=== PATIENT | male | born 1980 | race Caucasian/White ===

== ENCOUNTER 2018-08-09 18:20 | Emergency (ER) | payer BC, SELFPAY ==
[2018-08-09 18:21] VITALS: BP 136/71; PULSE 116; RESP 20; TEMP 36.3; O2SAT 99; BMI 30.9
[2018-08-09 18:30] VITALS: BP 151/80; PULSE 131; RESP 16; O2SAT 99
--- NOTE | 2018-08-09 18:34 | ED.RN ---
pt reports that pain comes and goes for about a week with no pattern of activity or triggers. sob comes with it at times and sob worse with laying down. pain to upper left chest just under collar bone. left arm pain in biscep down through fingers. 1 episode of diaphoresis with the pain today. does have hx of a-fib recently. ST on monitor rt now.
--- NOTE | 2018-08-09 18:40 | RAD_ITS ---
STUDY: X-RAY CHEST REASON FOR EXAM: Male, 37 years old. PT C/O INTERMITTENT CHEST PAIN THAT RADIATES TO LEFT ARM. TECHNIQUE: Single AP portable view of the chest. COMPARISON: FINDINGS: The lungs are clear and expanded. There is no demonstrated pleural abnormality. There is mild cardiac enlargement. Normal mediastinum and gus. Normal visualized pulmonary arteries. Normal visualized aortic arch and descending thoracic aorta. Normal visualized thoracic spine. Normal visualized ribs, clavicles, and shoulders. There is no demonstrated abnormality of the visualized soft tissue structures of the upper abdomen. RAD/Chest 1 View (Portable) IMPRESSION: Normal x-ray examination of the chest. Electronically Signed: Patric López MD at 19:05 EDT , Service support ,
--- NOTE | 2018-08-09 18:40 | EKG12_ITS ---
Test Reason : CP Blood Pressure : / mmHG Vent. Rate : 114 BPM Atrial Rate : 114 BPM P-R Int : 144 ms QRS Dur : 076 ms QT Int : 320 ms P-R-T Axes : 057 008 010 degrees QTc Int : 441 ms Sinus tachycardia Otherwise normal ECG Confirmed by SARITA QUEZADA, KAMLA ([id number]), newspaper photo editor RONALD GARZON ([id number]) on 08/11/2018 3:24:29 PM Referred By: MONICA/BRENDAN Confirmed By:KAMLA STEIN MD
[2018-08-09 18:45] VITALS: O2SAT 99
[2018-08-09] MEDS: 0.9% Normal Saline 1,000 ML 1000 ML IV (18:48)
[2018-08-09] MEDS: Aspirin 81 MG TAB.CHEW 324 MG PO (18:48)
[2018-08-09 18:49] VITALS: BP 143/94; PULSE 104; RESP 14; O2SAT 98
[2018-08-09 18:54] LABS: Absolute Lymphocyte Count 2.49 X10^3/ul (0.83-4.51); Absolute Neutrophil Count 9.5 X10^3/uL (2.0-7.7); Basophil# 0.04 X10^3/uL; Basophil% 0.3 % (0-1); Eosinophil# 0.08 X10^3/uL; Eosinophils% 0.6 % (0-5); Hematocrit 43.2 % (40-54); Hemoglobin 14.8 g/dl (13.0-16.5); Lymphocyte # 2.49 X10^3/ul (4.0); Lymphocyte % 18.7 % (19-41); Mean Corp Hgb Conc 34.3 g/gl (32-36); Mean Corpuscular Hgb 29.7 pg (27.0-32.0); Mean Corpuscular Volume 86.7 fL (80-94); Mean Platelet Vol. 9.1 fl (6.2-12.0); Monocyte# 1.14 X10^3/uL; Monocyte% 8.6 % (0-10); Neutrophil # 9.52 X10^3/uL (2.7-7.7); Neutrophil % 71.6 % (47-70); POSITIVE COUNT NO; POSITIVE DIFFERENTIAL NO; POSITIVE MORPHOLOGY NO; Platelet Count 380 K/mm3 (150-450); RBC Distribution Width CV 12.9 % (11.6-14.6); RBC Distribution Width SD 41.1 fl (35.1-43.9); Red Blood Count 4.98 M/mm3 (4.6-6.2); White Blood Count 13.3 K/mm3 (4.4-11.0)
[2018-08-09 18:56] LABS: D-Dimer Quantitative (DVT/PE) 0.29 FEU/ug/m (0.27-0.49)
[2018-08-09 19:07] LABS: Anion Gap 6 (5-15); BUN 14 mg/dL (7-18); BUN/Creat Ratio 15.3 RATIO (10-20); Chloride 105 mmol/L (98-107); Creatinine, Serum 0.92 mg/dL (0.70-1.30); EST Glomerular Filtration Rate 99 mL/min (>60); Est Glom Filt Rate - Afr Amer 119 mL/min (>60); Estimated Creatinine Clearance 113.51 ml/min; Glucose 99 mg/dL (74-106); Potassium 3.8 mmol/L (3.5-5.1); Sodium Level 138 mmol/L (136-145); Thyroid Stim Hormone (TSH) 1.24 uIU/mL (0.358-3.74)
[2018-08-09 19:38] VITALS: BP 140/77; PULSE 98; RESP 20; O2SAT 100
--- NOTE | 2018-08-09 20:08 | ED.VISSUMM ---
- ER Visit Summary Date of Service: 08/09/18 Chief Complaint: Chest pain History of Present Illness: The patient is a [address] Milian and Dr. Arora. He reports he has chest pain began approximately 10 days ago. Some intermittent pain that lasts hours at a time. He states that it is 6 out of 10 at worst and is pain-free currently. It is worsened by nothing including exertion, movement, or breathing. Is also relieved by nothing. Does report he has had a episodes of nausea. He has had diaphoresis and shortness of breath as well. He has no personal or family history of DVT. He did go on a cruise 2 weeks ago and this required a drive to [place] which is approximately 8 hours. However, he denies any ankle swelling or calf pain. Physical Examination: Vitals: Stable. Afebrile. General: Well-nourished and well-developed. Head: Normocephalic atraumatic. Neck: Supple, no lymphadenopathy. No JVD. Nontender. Cardiovascular: Regular rate and rhythm. No murmurs. Respiratory: No respiratory distress. Clear to auscultation bilaterally. Abdominal: Soft, nontender, nondistended, normal bowel sounds. No guarding, rebound, or peritoneal signs. Back: Nontender. Extremities: Nontender, no edema. Skin: Normal color, no rash. Neurologic: Alert and oriented ?3. Cranial nerves II through XII are intact. Normal strength and sensation. Psych: Normal affect. Test Results: EKG is sinus tach [address] changes. There is no old EKG for comparison. Troponin is negative. D-dimer is negative. Chem-7 is normal. CBC is more for a white count of 13.3 with 72 segmented neutrophils and 19 lymphs lites. TSH is normal. Chest x-ray is normal. Emergency Department Course and Treatment: Patient is resting comfortably has been pain-free while here. Treatment Plan: Discussed the patient at this time I do not have an explanation for his chest pain. Is not typical of angina. He reports that he had a heart catheterization 10 years ago that was negative. Does have a history of paroxysmal A. fib that he takes flecainide for as needed. He reports that he did have an episode 2 weeks ago, but has not had an episode since then. His heart score is 1. His ROMY score is 0. I feel that he is a suitable candidate for further outpatient evaluation. He will be discharged instructions follow-up Dr. Milian soon as possible. Return to the emergency department for any worsening symptoms. Disposition: To home in improved and stable condition. Impression: 1. Atypical chest pain. 2. ROMY score of 0. This note was generated with [employer] dictation software. It may contain incorrect words, spelling, and punctuation that were not noted in review of the chart prior to signing ED Disposition - Plan for ED Patient: Disposition: Home or Assisted Living Chief Complaint: Chest Pain Instructions: ED Chest Pain Atypical Unkn Cause Referrals: Mauricio Arora MD [Primary Care Provider] - Neil Milian MD [STAFF PHYSICIAN] - As soon as possible
[2018-08-09 20:12] VITALS: BP 151/79; PULSE 95; PULSE 96; RESP 16; RESP 19; O2SAT 96; O2SAT 97
== END 2018-08-09 20:15 | disposition home or self-care (01) ==
LOC: ED 18:55
PROVIDERS: Emergency Provider Emergency Medicine; Family Provider Family Medicine; PCP Family Medicine
DX: R07.89 Other chest pain (principal); I48.0 Paroxysmal atrial fibrillation; I10 Essential (primary) hypertension; R06.02 Shortness of breath; R11.0 Nausea; R06.00 Dyspnea, unspecified; Z79.899 Other long term (current) drug therapy
CPT/HCPCS: 71045; 80048; 84443; 84484; 85025; 85379; 93005; 96360; 99285; J7030; A4216

== ENCOUNTER → 2019-06-04 08:06 | Outpatient (CLI) | payer BC, SELFPAY ==
[2019-05-20 08:37] VITALS: BMI 32.0
--- NOTE | 2019-06-04 08:08 | ECHOD_ITS ---
Reason For Study: AFIB/FLUTTER Procedure This was a 2D Doppler, Color Flow transthoracic echocardiogram. Exam performed in department. Left Ventricle Normal LV size. Left ventricular systolic function is normal. The estimated ejection fraction is 60 %. Normal diastology for age. No regional wall motion abnormalities noted. Right Ventricle Normal RV size. Normal systolic function. Atria Normal left atrium. Normal right atrium. Mitral Valve Normal mitral valve. Tricuspid Valve Normal tricuspid valve. Aortic Valve The aortic valve is not well visualized. Pulmonic Valve The pulmonic valve is not well visualized. Great Vessels Normal aortic root. The pulmonary artery is normal size. Normal inferior vena cava. Pericardium/Pleural No pericardial effusion. MMode/2D Measurements & Calculations LVIDd: 5.1 cm IVSd: 0.94 cm Ao root diam: 2.5 cm LVIDs: 3.5 cm LVPWd: 0.94 cm RVDd: 3.1 cm FS: 31.5 % LAV(MOD-bp): 53.5 ml LA A4 area: 18.3 cm2 LA dimension(2D): 3.6 cm LAV(MOD-bp) Indexed: 24.6 ml/m2 LAV(MOD-sp2): 47.7 ml LAV(MOD-sp4): 48.7 ml RA A4 area: 11.5 cm2 Time Measurements MV dec time: 0.17 sec Doppler Measurements & Calculations MV E max jose juan: 75.6 cm/sec Lat Peak E' Jose Juan: 8.6 cm/sec Med Peak E' Jose Juan: 10.4 cm/sec MV A max jose juan: 53.1 cm/sec E/E' lat: 8.7 E/E' med: 7.3 MV E/A: 1.4 Ao V2 max: 120.6 cm/sec LV V1 max: 105.4 cm/sec PA V2 max: 127.1 cm/sec Ao max P.8 mmHg LV V1 max P.4 mmHg Interpretation Summary Normal LV size. Left ventricular systolic function is normal. The estimated ejection fraction is 60 %. Normal diastology for age. Ordering Physician: Neil Milian Referring Physician: Mauricio Arora Performed By: Apple Carney, ALE, RVT
== END ==
PROVIDERS: Family Provider Family Medicine; PCP Family Medicine; Referring Provider Internal Medicine Cardiovascular Disease; Visit Provider Internal Medicine Cardiovascular Disease
DX: I48.0 Paroxysmal atrial fibrillation (principal); I10 Essential (primary) hypertension
CPT/HCPCS: 93306

== ENCOUNTER → 2020-12-23 08:55 | Outpatient (CLI) | payer BC, SELFPAY ==
[2020-12-16 11:38] VITALS: BMI 31.1
== END ==
PROVIDERS: PCP Family Medicine; Referring Provider Internal Medicine Cardiovascular Disease; Visit Provider Internal Medicine Cardiovascular Disease
DX: I48.0 Paroxysmal atrial fibrillation (principal); I48.92 Unspecified atrial flutter
CPT/HCPCS: 93226

== ENCOUNTER → 2022-08-14 | Outpatient (CLI) | payer BC, SELFPAY ==
[2022-08-14 12:54] LABS: Anion Gap 5 (5-15); BUN 11 mg/dL (7-18); BUN/Creat Ratio 13.4 RATIO (10-20); Calcium,Total 9.5 mg/dL (8.5-10.1); Chloride 106 mmol/L (98-107); Creatinine, Serum 0.82 mg/dL (0.70-1.30); EST Glomerular Filtration Rate 110 mL/min (>60); Est Glom Filt Rate - Afr Amer 133 mL/min (>60); Glucose 90 mg/dL (74-106); Hemoglobin A1c 5.6 % (3.8-5.6); Potassium 4.2 mmol/L (3.5-5.1); Sodium Level 139 mmol/L (136-145); Thyroid Stim Hormone (TSH) 1.64 uIU/mL (0.358-3.74)
== END | disposition home or self-care (01) ==
PROVIDERS: PCP Family Medicine; Referring Provider Internal Medicine Cardiovascular Disease; Visit Provider Internal Medicine Cardiovascular Disease
DX: I48.0 Paroxysmal atrial fibrillation (principal); I10 Essential (primary) hypertension
CPT/HCPCS: 36415; 80048; 83036; 84443

== ENCOUNTER → 2022-11-19 | Outpatient (CLI) | payer BC, SELFPAY ==
[2022-11-19 12:13] LABS: Absolute Lymphocyte Count 1.87 X10^3/uL (0.83-4.51); Absolute Neutrophil Count 3.6 X10^3/uL (2.0-7.7); Basophil# 0.04 X10^3/uL; Basophil% 0.6 % (0-1); Eosinophil# 0.09 X10^3/uL; Eosinophils% 1.4 % (0-5); Hematocrit 44.7 % (40-54); Hemoglobin 15.2 g/dL (13.0-16.5); Lymphocyte # 1.87 X10^3/ul (0.83-4.51); Lymphocyte % 30.1 % (19-41); Mean Corpuscular Hgb 29.9 pg (27.0-32.0); Mean Platelet Vol. 9.7 fl (6.2-12.0); Monocyte# 0.65 X10^3/uL; Monocyte% 10.5 % (0-10); NRBC Flagged by Analyzer 0 % (0-5); Neutrophil # 3.55 X10^3/uL (2.7-7.7); Neutrophil % 57.1 % (47-70); Platelet Count 416 K/mm3 (150-450); RBC Distribution Width CV 13.6 % (11.6-14.6); RBC Distribution Width SD 43.8 fl (35.1-43.9); Red Blood Count 5.08 M/mm3 (4.6-6.2); White Blood Count 6.2 K/mm3 (4.4-11.0)
[2022-11-19 12:20] LABS: Erythrocyte Sedimentation Rate 13 mm/hr (0-20)
[2022-11-19 12:46] LABS: Vitamin B12 259 pg/mL (211-911)
[2022-11-19 12:57] LABS: ALB/GLOB Ratio 1.1 RATIO (0.9-2.4); AST(SGOT) 18 U/L (15-37); Alanine Aminotransfer ALT/SGPT 43 U/L (16-61); Albumin, Serum 3.9 g/dL (3.2-5.0); Alkaline Phosphatase 76 U/L (45-117); Anion Gap 11 (5-15); BUN 15 mg/dL (7-18); BUN/Creat Ratio 16.9 RATIO (10-20); Calcium,Total 9.1 mg/dL (8.5-10.1); Chloride 104 mmol/L (98-107); Creatinine, Serum 0.89 mg/dL (0.70-1.30); EST Glomerular Filtration Rate 100 mL/min (>60); Est Glom Filt Rate - Afr Amer 121 mL/min (>60); Globulin 3.7 g/dL (2.2-4.2); Glucose 94 mg/dL (74-106); Magnesium 2.4 mg/dL (1.6-2.6); Potassium 3.7 mmol/L (3.5-5.1); Protein, Total 7.6 g/dL (6.4-8.2); Sodium Level 139 mmol/L (136-145); Thyroid Stim Hormone (TSH) 1.85 uIU/mL (0.358-3.74)
== END | disposition home or self-care (01) ==
PROVIDERS: PCP Internal Medicine; Referring Provider Physician Assistant; Visit Provider Physician Assistant
DX: I48.0 Paroxysmal atrial fibrillation (principal); I10 Essential (primary) hypertension; R20.2 Paresthesia of skin
CPT/HCPCS: 36415; 80053; 82607; 83735; 84443; 85025; 85652

== ENCOUNTER → 2022-12-31 | Outpatient (CLI) | payer BC, SELFPAY | END | disposition home or self-care (01) | PROVIDERS: PCP Internal Medicine; Visit Provider Internal Medicine | DX: G47.10 Hypersomnia, unspecified (principal) | CPT/HCPCS: 95811 ==

== ENCOUNTER → 2023-01-31 | Outpatient (CLI) | payer BC, SELFPAY ==
[2023-01-31 09:28] LABS: Erythrocyte Sedimentation Rate 3 mm/hr (0-20)
[2023-01-31 09:44] LABS: CRP 3.35 mg/L (0.0-3.0); Rheumatoid Factor < 10.0 IU/mL (<15)
[2023-02-01 12:22] LABS: CCP IgG Antibodies 1 units (0-19)
== END | disposition home or self-care (01) ==
PROVIDERS: PCP Internal Medicine; Referring Provider Internal Medicine; Visit Provider Internal Medicine
DX: Z46.89 Encounter for fitting and adjustment of other specified devices (principal); M19.90 Unspecified osteoarthritis, unspecified site
CPT/HCPCS: 36415; 85652; 86140; 86200; 86431

== ENCOUNTER → 2023-11-30 | Outpatient (CLI) | payer BC, SELFPAY ==
--- OUTSIDE RECORDS SUMMARY | 2023-11-30 09:38 | XMS RPT_ITS | CCD ---
Author Name Unknown Address [address] [place] [address] Organization [facility] Care Team Providers Care Cargo Vessel Stewardess Name Role Phone Clint Harrison Unavailable Unavailable Clint Harrison Unavailable Unavailable *SELF, REFERRED Unavailable Unavailable Jatinder Arora Unavailable Unavaila ble Maicol, Neil S Unavailable Medications Completed/Discontinued Medications Medication Drug Class(es) Dates Sig (Normalized) Sig (Original) 24 hr dilTIAZem hydrochloride 240 mg extended release oral capsule (1 source) Calcium Channel Osmany Start: 01-02-2012 take 1 capsule by mouth once daily diltiazem CD (CARDIZEM CD) 240 mg ORAL 24 hr capsule Take 1 capsule by mouth once daily. 0 01/02/2012 Active Problems Active Problems Problem Classification Problem Date Documented Da te Episodic/Chronic Cardiac dysrhythmias (1 source) Paroxysmal atrial fibrillation; Translations: [Paroxysmal atrial fibrillation] Onset: 11-19-2012 11-19-2012 Chronic Essential hypertension (1 source) Essential hypertension; Translations: [Essential (primary) hypertension] Onset: 03-18-2016 03-18-2016 Chronic Past or Other Problems Problem Classification Problem Date Documented Da te Episodic/Chronic Other and unspecified benign neoplasm (1 source) Benign neoplasm of soft tissue; Translations: [Melanocytic nevi, unspecified] Onset: 11-19-2012 11-19-2012 Episodic Results Test Name Value Interpretation Reference Range Facil ity Encounters Encounter Date Encounter Type Care Provider Facility Start: 08-14-2022 Telephone encounter Jatinder Arora MD Work Phone: [facility] Plan of Treatment Date Care Activity Detail Author Start: 08-26-2024 LIPID SCREEN LIPID SCREEN [facility] Start: 11-19-2022 Urine microalbumin profile DTA P,TDAP,TD (2 - Td or Tdap) [facility] Start: 07-12-2022 Influenza vaccination INFLUENZA (#1) [facility] Start: 11-11-2021 DEPRESSION ASSESSMENT DEPRESSION ASS ESSMENT [facility] Start: 10-07-2020 ANNUAL PCP TEAM 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 RORY DISEASE VISIT ANNUAL PCP TEAM CHRONIC DISEASE VISIT [facility] Start: 1998 BP CONTROLLED (<130/80) BP CONTROLLE D (<130/80) [facility] Start: 1998 HEPATITIS C SCREENING HEPATITIS C SC REENING [facility] Start: 1998 HIV SCREENING HIV SCREENING [facility] Start: 06-07-1981 COVID-19 VACCINE (#1) COVID-19 VACCI NE (#1) [facility] Start: 1980 HEPATITIS B (1 of 3 - 3-dose series) HEPATITIS B (1 of 3 - 3-dose series) [facility] Immunizations Immunization Date Immunization Notes Care Provider Holly mandujano 11-19-2012 tetanus toxoid, redu ivan diphtheria toxoid, and acellular pertussis vaccine, adsorbed Jatinder Arora MD Work Phone: [facility] Payers Date Payer Category Payer Unknown [employer] PPO OOS [id number] 2014-Present [phone] [id number] [place] [address] PPO [id number] Unknown [id number] Social History Date Type Detail Facility Start: 10-21-2012 Tobacco smoking stat us [facility] Never smoked tobacco [facility] Work Phone: Start: 10-21-2012 Tobacco use and exposure Smokeless tobacco non-user [facility] Work Phone: Start: 06-28-2022 Alcohol intake Current drinke r of alcohol (finding) [facility] Start: 06-28-2022 Alcohol intake [facility] Start: 1980 [facility] 08-14-2022 Telephone Encounter - Elke Gage - 08/14/2022 3:03 PM EDT Note Date & Type Note Facility 08-14-2022 Miscellaneous Notes Formattin g of this note might be different from the original. Received visit summary and labs for afib and hypertension from [facility]. Placed in provider's inbox for review. Route to MA scanning. documented in this encounter [facility] Summary Purpose Family History No Family History Records FoundNo Family History Records Found Advance Directives No Advanced Directives Records FoundNo Advanced Directives Records Found Additional Source Comments (unrecognized sect ion and content) No Status Records FoundNo Status Records Found INFORMATION SOURCE (unrecogn ized section and content) DATE CREATED AUTHOR AUTHOR'S ORGANIZ ATION 08/15/2022 [facility] Source Comments (unrecognize d section and content) In the event this informatio n is protected by the Federal Confidentiality of Alcohol and Drug Abuse Patient Records regulations: The Federal rules restrict any use of the information to criminally investigate or prosecute any alcohol or drug abuse patient.[facility] Reason for Visit (unrecogniz ed section and content) Care Teams (unrecognized sec tion and content) FOR RECORDS PERTAINING TO PATIENTS WHO ARE OR HAVE BEEN ENROLLED IN A CHEMICAL DEPENDENCY/SUBSTANCEABUSE PROGRAM, SOME INFORMATION MAY BE OMITTED. This clinical summary was aggregated from multiple sources. Caution should be exercised in using it in the provision of clinical care. This summary normalizes information from multiple sources, and as a consequence, information in this document may materially change the coding, format and clinical context of patient data. In addition, data may be omitted in some cases. CLINICAL DECISIONS SHOULD BE BASED ON THE PRIMARY CLINICAL RECORDS. [employer] provides no warranty or guarantee of the accuracy or completeness of information in this document.
[2023-11-30 10:21] LABS: Absolute Lymphocyte Count 2.73 X10^3/uL (0.83-4.51); Absolute Neutrophil Count 4.7 X10^3/uL (2.0-7.7); Basophil# 0.06 X10^3/uL; Basophil% 0.7 % (0-1); Eosinophil# 0.16 X10^3/uL; Eosinophils% 1.9 % (0-5); Hematocrit 43.7 % (40-54); Hemoglobin 14.4 g/dL (13.0-16.5); Lymphocyte # 2.73 X10^3/ul (0.83-4.51); Lymphocyte % 32.7 % (19-41); Mean Corpuscular Hgb 28.9 pg (27.0-32.0); Mean Corpuscular Volume 87.6 fL (80-94); Mean Platelet Vol. 9.3 fl (6.2-12.0); Monocyte# 0.72 X10^3/uL; Monocyte% 8.6 % (0-10); NRBC Flagged by Analyzer 0 % (0-5); Neutrophil # 4.66 X10^3/uL (2.7-7.7); Neutrophil % 55.9 % (47-70); Platelet Count 466 K/mm3 (150-450); RBC Distribution Width CV 13.7 % (11.6-14.6); RBC Distribution Width SD 43.8 fl (35.1-43.9); Red Blood Count 4.99 M/mm3 (4.6-6.2); White Blood Count 8.4 K/mm3 (4.4-11.0)
[2023-11-30 11:01] LABS: AST(SGOT) 16 U/L (15-37); Alanine Aminotransfer ALT/SGPT 38 U/L (16-61); Albumin, Serum 3.8 g/dL (3.2-5.0); Alkaline Phosphatase 72 U/L (45-117); Anion Gap 5 (5-15); BUN 13 mg/dL (7-18); BUN/Creat Ratio 14.2 RATIO (10-20); Calcium,Total 9.1 mg/dL (8.5-10.1); Chloride 106 mmol/L (98-107); Cholesterol 179 mg/dL (200); Creatinine, Serum 0.91 mg/dL (0.70-1.30); EST Glomerular Filtration Rate 96 mL/min (>60); Est Glom Filt Rate - Afr Amer 116 mL/min (>60); Globulin 3.7 g/dL (2.2-4.2); Glucose 92 mg/dL (74-106); High Density Lipoprotein 44 mg/dL; Potassium 4.4 mmol/L (3.5-5.1); Protein, Total 7.5 g/dL (6.4-8.2); Sodium Level 139 mmol/L (136-145); Triglycerides 149 mg/dL; Very Low Density Lipoprotein 30 mg/dL (5-40)
== END | disposition home or self-care (01) ==
LOC: LAB 09:35
PROVIDERS: PCP Internal Medicine; Referring Provider Internal Medicine; Visit Provider Internal Medicine
DX: I10 Essential (primary) hypertension (principal)
CPT/HCPCS: 36415; 80053; 80061; 85025

== ENCOUNTER → 2024-03-06 | Outpatient (CLI) | payer BC, SELFPAY ==
--- NOTE | 2024-03-06 10:56 | ECHOCS_ITS ---
Reason For Study: AFIB Procedure This was a 2D Doppler, Color Flow transthoracic echocardiogram. Contrast injection was performed. Exam performed in department. Left Ventricle Normal LV size. Left ventricular systolic function is normal. The estimated ejection fraction is 55 %. Normal diastology for age. No regional wall motion abnormalities noted. Right Ventricle Normal RV size. Normal systolic function. Atria Normal left atrium. Normal right atrium. Mitral Valve Normal mitral valve. Tricuspid Valve Normal tricuspid valve. Aortic Valve Trisinus/trileaflet aortic valve. Pulmonic Valve The pulmonic valve is not well visualized. Great Vessels Normal aortic root. The pulmonary artery is normal size. Normal inferior vena cava. Pericardium/Pleural No pericardial effusion. Medication 22 gauge I.V. with prn adaptor inserted into right arm. Diluted definity 2.5ml given slow IV push to enhance endocardial definition. MMode/2D Measurements & Calculations LVIDd: 4.4 cm IVSd: 1.1 cm LA dimension: 3.7 cm LVIDs: 3.4 cm LVPWd: 1.1 cm RVDd: 3.4 cm FS: 21.0 % LAV(MOD-bp): 40.5 ml LVAd ap4: 32.5 cm2 SV(MOD-sp4): 59.3 ml LAV(MOD-bp) Indexed: 18.3 ml/m2 LVLd ap4: 7.9 cm LAV(MOD-sp2): 31.7 ml EDV(MOD-sp4): 110.5 ml LAV(MOD-sp4): 43.8 ml EDV(sp4-el): 114.0 ml LVAs ap4: 20.2 cm2 LVLs ap4: 6.7 cm ESV(MOD-sp4): 51.3 ml ESV(sp4-el): 51.9 ml EF(MOD-sp4): 53.6 % EF(sp4-el): 54.5 % SV(sp4-el): 62.1 ml LA A4 area: 17.9 cm2 RA A4 area: 14.7 cm2 TAPSE: 2.1 cm Time Measurements MV dec time: 0.15 sec Doppler Measurements & Calculations MV E max jose juan: 85.4 cm/sec Lat Peak E' Jose Juan: 10.2 cm/sec Med Peak E' Jose Juan: 11.6 cm/sec MV A max jose juan: 60.1 cm/sec E/E' lat: 8.4 E/E' med: 7.4 MV E/A: 1.4 MV V2 max: 105.1 cm/sec MV P1/2t max jose juan: 105.6 cm/sec Ao V2 max: 125.2 cm/sec MV max P.4 mmHg MV P1/2t: 51.2 msec Ao max P.3 mmHg MV V2 mean: 58.3 cm/sec Ao V2 mean: 87.1 cm/sec MV mean P.6 mmHg MV dec slope: 604.6 cm/sec2 Ao mean P.5 mmHg MV V2 VTI: 16.9 cm MVA(P1/2t): 4.3 cm2 Ao V2 VTI: 22.0 cm AV (velocity ratio): 0.90 LV V1 max: 110.9 cm/sec PA V2 max: 89.3 cm/sec LV V1 max P.9 mmHg PA V2 mean: 64.0 cm/sec LV V1 mean P.8 mmHg LV V1 mean: 79.7 cm/sec LV V1 VTI: 19.7 cm ECHO/Echo Complete W/ Contrast Interpretation Summary Normal LV size. Left ventricular systolic function is normal. The estimated ejection fraction is 55 %. Normal diastology for age. Structurally normal valves. Contrast injection was performed. Ordering Physician: Ramos Singh Referring Physician: Brie Whitman Performed By: Martin Davidson RCS
== END | disposition home or self-care (01) ==
LOC: CVS 10:54
PROVIDERS: PCP Internal Medicine; Referring Provider Nurse Practitioner Family; Visit Provider Nurse Practitioner Family
DX: I31.39 Other pericardial effusion (noninflammatory) (principal); I48.0 Paroxysmal atrial fibrillation
CPT/HCPCS: 93306; Q9957; A4216; C8929

== ENCOUNTER → 2024-05-30 | Outpatient (CLI) | payer BC, SELFPAY ==
[2024-05-30 10:41] LABS: Anion Gap 5 (5-15); BUN 13 mg/dL (7-18); BUN/Creat Ratio 13.4 RATIO (10-20); Calcium,Total 9.3 mg/dL (8.5-10.1); Chloride 105 mmol/L (98-107); Creatinine, Serum 0.97 mg/dL (0.70-1.30); EST Glomerular Filtration Rate 90 mL/min (>60); Est Glom Filt Rate - Afr Amer 109 mL/min (>60); Glucose 94 mg/dL (74-106); Magnesium 2.5 mg/dL (1.6-2.6); Potassium 4.4 mmol/L (3.5-5.1); Sodium Level 138 mmol/L (136-145)
== END | disposition home or self-care (01) ==
LOC: LAB 09:42
PROVIDERS: PCP Internal Medicine; Referring Provider Internal Medicine; Visit Provider Internal Medicine
DX: I10 Essential (primary) hypertension (principal)
CPT/HCPCS: 36415; 80048; 83735

== ENCOUNTER → 2024-12-19 | Outpatient (CLI) | payer BC, SELFPAY ==
[2024-12-19 11:00] LABS: Absolute Lymphocyte Count 2.99 X10^3/uL (0.83-4.51); Absolute Neutrophil Count 4.9 X10^3/uL (2.0-7.7); Basophil# 0.03 X10^3/uL; Basophil% 0.3 % (0-1); Eosinophil# 0.28 X10^3/uL; Eosinophils% 3.1 % (0-5); Hematocrit 46.8 % (40-54); Hemoglobin 15.5 g/dL (13.0-16.5); Lymphocyte # 2.99 X10^3/ul (0.83-4.51); Lymphocyte % 32.9 % (19-41); Mean Corp Hgb Conc 33.1 g/dL (32-36); Mean Corpuscular Hgb 28.7 pg (27.0-32.0); Mean Corpuscular Volume 86.5 fL (80-94); Mean Platelet Vol. 8.7 fl (6.2-12.0); Monocyte# 0.81 X10^3/uL; Monocyte% 8.9 % (0-10); NRBC Flagged by Analyzer 0 % (0-5); Neutrophil # 4.94 X10^3/uL (2.7-7.7); Neutrophil % 54.5 % (47-70); Platelet Count 409 K/mm3 (150-450); RBC Distribution Width CV 13.1 % (11.6-14.6); RBC Distribution Width SD 41.1 fl (35.1-43.9); Red Blood Count 5.41 M/mm3 (4.6-6.2); White Blood Count 9.1 K/mm3 (4.4-11.0)
[2024-12-19 11:44] LABS: ALB/GLOB Ratio 0.9 RATIO (0.9-2.4); AST(SGOT) 20 U/L (15-37); Alanine Aminotransfer ALT/SGPT 53 U/L (16-61); Albumin, Serum 3.7 g/dL (3.2-5.0); Alkaline Phosphatase 77 U/L (45-117); Anion Gap 7 (5-15); BUN 13 mg/dL (7-18); Calcium,Total 8.9 mg/dL (8.5-10.1); Chloride 105 mmol/L (98-107); Cholesterol 145 mg/dL (200); Creatinine, Serum 0.93 mg/dL (0.70-1.30); EST Glomerular Filtration Rate 94 mL/min (>60); Est Glom Filt Rate - Afr Amer 114 mL/min (>60); Globulin 4.2 g/dL (2.2-4.2); Glucose 91 mg/dL (74-106); High Density Lipoprotein 33 mg/dL; Potassium 4.1 mmol/L (3.5-5.1); Protein, Total 7.9 g/dL (6.4-8.2); Sodium Level 138 mmol/L (136-145); Triglycerides 99 mg/dL; Very Low Density Lipoprotein 20 mg/dL (5-40)
== END | disposition home or self-care (01) ==
LOC: LAB 10:05
PROVIDERS: PCP Internal Medicine; Referring Provider Internal Medicine; Visit Provider Internal Medicine
DX: I10 Essential (primary) hypertension (principal)
CPT/HCPCS: 36415; 80053; 80061; 85025

== ENCOUNTER → 2025-07-28 | Outpatient (CLI) | payer BC, SELFPAY ==
[2025-07-28 12:36] LABS: Hematocrit 45.1 % (40-54); Hemoglobin 15.0 g/dL (13.0-16.5); Immature Granulocytes Count 0.030 X10^3/uL (0.0-0.0); Mean Corp Hgb Conc 33.3 g/dL (32-36); Mean Corpuscular Volume 88.1 fL (80-94); Mean Platelet Vol. 9.6 fl (6.2-12.0); NRBC Flagged by Analyzer 0 % (0-5); Platelet Count 437 K/mm3 (150-450); RBC Distribution Width CV 13.5 % (11.6-14.6); RBC Distribution Width SD 43.6 fl (35.1-43.9); Red Blood Count 5.12 M/mm3 (4.6-6.2); White Blood Count 8.1 K/mm3 (4.4-11.0)
[2025-07-28 13:19] LABS: AST(SGOT) 19 U/L (<=37); Alanine Aminotransfer ALT/SGPT 29 U/L (<=46); Albumin, Serum 4.5 g/dL (3.5-5.0); Alkaline Phosphatase 77 U/L (40-129); Anion Gap 14 (5-15); BUN 17 mg/dL (4-19); BUN/Creat Ratio 18.9 RATIO (10-20); Calcium,Total 10.0 mg/dL (7.6-11.0); Carbon Dioxide 21.5 mmol/L (21.0-32.0); Chloride 104 mmol/L (98-108); Cholesterol 208 mg/dL (<=200); Globulin 2.9 g/dL (2.2-4.2); Glucose 95 mg/dL (70-99); Low Density Lipoprotein Calc. 126 mg/dL; Potassium 3.9 mmol/L (3.3-5.1); Triglycerides 208 mg/dL; Very Low Density Lipoprotein 42 mg/dL (5-40); cholesterol:hdl ratio screen 5.12
== END | disposition home or self-care (01) ==
LOC: BIMLAB 08:02
PROVIDERS: PCP Internal Medicine; Referring Provider Internal Medicine; Visit Provider Internal Medicine
DX: I10 Essential (primary) hypertension (principal)
CPT/HCPCS: 36415; 80053; 80061; 85025